=== PATIENT | female | born 1985 | race African-American/Black ===

== ENCOUNTER → 2021-07-05 | Outpatient (REF) | payer OTHER | LOC: M LAB REF 20:30 | PROVIDERS: ATTEND Physician Assistant | DX: N39.0 Urinary tract infection, site not specified (principal) ==

== ENCOUNTER 2022-01-29 09:39 | Day surgery (SDC) | payer OTHER ==
[~2022-01-29] VITALS: Ht 157.5 cm; Wt 64.9 kg
[~2022-01-29 09:39] MED LIST: ACETAMINOPHEN 500 MG TAB PO ONE; FERR325T18 PO; LR 1,000 ML IV ONE; SYNT112T2 PO
[2022-01-29 10:21] LABS: HEMATOCRIT 34.3 % (36.0-47.0); HEMOGLOBIN 11.1 g/dl (12.0-15.5); MEAN CORPUSCULAR HEMOGLOBIN 29.1 pg (27.0-33.0); MEAN CORPUSCULAR HGB CONC 32.4 g/dl (32.0-36.5); PLATELET COUNT, AUTOMATED 308 10^3/uL (150-450); RED BLOOD COUNT 3.81 10^6/uL (4.00-5.40); WHITE BLOOD COUNT 3.5 10^3/uL (4.0-10.0)
[2022-01-29 10:36] LABS: HCG, SERUM QUALITATIVE NEGATIVE (NEGATIVE)
[2022-01-29] MEDS ORDERED: fentaNYL 100 MCG/2 ML INJECTION As Ordered ONE (10:48)
[2022-01-29] MEDS ORDERED: LIDOCAINE 2% 100MG/5ML SDV (FOR ANES.) As Ordered ONE (10:48)
[2022-01-29] MEDS ORDERED: MIDAZOLAM INJ 2MG/2ML VIAL (J2250 PER 1MG) As Ordered ONE (10:48)
[2022-01-29] MEDS ORDERED: dexameTHASONE 4 MG/ML 1ML VIAL (J1100 PER 1MG) As Ordered ONE (10:49)
[2022-01-29] MEDS ORDERED: ONDANSETRON 4MG/2ML VIAL As Ordered ONE (10:49)
[2022-01-29] MEDS ORDERED: propofoL 200 MG/20 ML VIAL As Ordered ONE (10:49)
[2022-01-29] MEDS ORDERED: KETOROLAC 60MG 2ML VIAL As Ordered ONE (12:00)
[2022-01-29] MEDS ORDERED: SILVER NITRATE APPLICATOR As Ordered ONE (12:19)
[2022-01-29] MEDS ORDERED: HYDROMORPHONE HCL 0.5 MG/ 0.5 ML SYRINGE (J1170 PER 1) IV PRN (13:00)
[2022-01-29] MEDS ORDERED: oxyCODONE 5MG TAB PO PRN (13:00)
[2022-01-29] MEDS ORDERED: LR 1,000 ML IV SCH ×2 (13:00→13:05)
[2022-01-29] MEDS ORDERED: ONDANSETRON 4MG/2ML VIAL IV PRN (13:00)
[2022-01-29] MEDS ORDERED: fentaNYL 100 MCG/2 ML INJECTION IV PRN (13:00)
[2022-01-29 13:10] VITALS: BP 120/82
== END 2022-01-29 14:00 | disposition home or self-care (01) ==
LOC: M SDC 09:39
PROVIDERS: ATTEND Obstetrics & Gynecology
DX: N84.0 Polyp of corpus uteri (principal); N93.9 Abnormal uterine and vaginal bleeding, unspecified; E03.9 Hypothyroidism, unspecified; K21.9 Gastro-esophageal reflux disease without esophagitis; D64.9 Anemia, unspecified; Z79.899 Other long term (current) drug therapy
CPT/HCPCS: 36415; 58558; 84703; 85027; 86850; 86900; 86901; 88305; 88341; 88342; J1100; J1885; J2250; J2405; J3010

== ENCOUNTER → 2022-02-22 | Outpatient (REF) | payer OTHER ==
[~2022-02-22] MED LIST changes: -ACETAMINOPHEN 500 MG TAB PO ONE; -LR 1,000 ML IV ONE
== END ==
LOC: M WUC 19:11
PROVIDERS: ATTEND Internal Medicine
DX: R30.0 Dysuria (principal)

== ENCOUNTER → 2023-01-13 | Outpatient (CLI) | payer OTHER | LOC: M PLAIMG 07:22 | PROVIDERS: ATTEND Physician Assistant | DX: M67.811 Other specified disorders of synovium, right shoulder (principal); M25.511 Pain in right shoulder; M25.411 Effusion, right shoulder ==

== ENCOUNTER → 2023-03-13 | Outpatient (REF) | payer OTHER | LOC: M WUC 20:26 | PROVIDERS: ATTEND Student in an Organized Health Care Education/Training Program | DX: R30.0 Dysuria (principal) ==